=== PATIENT | male | born 1985 | race Caucasian/White ===

== ENCOUNTER 2025-03-24 02:39 | Observation (INO) | payer OTHER, SELFPAY ==
[2025-03-24] VITALS (14 sets, daily range): BP systolic 118–143; BP diastolic 83–99; PULSE 80–99; RESP 12–20; TEMP 36.1–37.6; O2SAT 97–100; BMI 28.2
--- NOTE | ~2025-03-24 | CT_ITS ---
EXAMINATION: CT abdomen pelvis w con DATE: 03/24/2025 05:36 INDICATION: Abdominal pain. TECHNIQUE: Computed tomography (CT) of the abdomen and pelvis was performed with 100 mL Omnipaque 350 intravenous contrast. Automated exposure control and iterative reconstruction technique were employed. The dose-length product was 802.64 mGy-cm. COMPARISON: None. FINDINGS: The visualized portions of the lung bases demonstrate mild atelectasis. No pleural effusion. The heart size is normal. No pericardial effusion. The liver demonstrates focal steatosis adjacent to the falciform ligament. The gallbladder, spleen, pancreas, adrenal glands, and left kidney are normal. There is a 14 mm cyst in right kidney. There is prominent fat in left inguinal canal that may be a hernia. The appendix is fluid-filled and dilated to 15 mm with surrounding fat stranding, consistent with appendicitis. There are no pathologically enlarged lymph nodes. There is no free intraperitoneal fluid. There is mild lumbar spondylosis. IMPRESSION: 1. Acute appendicitis. Reviewed, dictated and finalized at location E. SALES REPRESENTATIVE IMPRESSION: 1. Acute appendicitis.
--- OUTSIDE RECORDS SUMMARY | 2025-03-24 02:41 | XMS_ITS | Clinical Summary ---
Author Organization [facility] Address [address] [place] [address] Care Team Providers Care Subassemblies Wirer Name Role Phone Mary Jo Blanc MD Primary Care Provider [phone] Source Comments [facility],non-owned Affiliates and Associated Physician Practices is amultiple site organization consisting of ambulatory clinics and hospital sitesin [place], [place] and [place]. This disclosure is being madepursuant to the Care Everywhere program and may not contain all information available regarding this patient. Last updated 18.[facility] Red Stamp Allergies No known active allergies Medications * Be aware that medications may not be up to date on this document. Alwaysverify current medications with the patient. ALPRAZolam (XANAX PO) Active amphetamine-dex troamphetamine XR 24hr (ADDERALL XR) 20 MG capsule Take 20 mg by mouth every morning Active Active Problems No known active problems Social History Tobacco Use Types Packs/Day Years Used Date Smoking Tobacco: Never Smokeless Tobacco: Never Sex and Gender Information Value Date Recorded Sex Assigned at Not on file Legal Sex Male 1:28 PM CDT Gender Identity Not on file Sexual Orientation Not on file Last Filed Vital Signs Vital Sign Reading Time Taken Comments Blood Pressure 120/78 11/27/2020 12:54 PM CDT Pulse 83 11/27/2020 12:54 PM CDT Temperature 36.7 C (98.1 F) 11/27/2020 12:54 PM CDT Respiratory Rate 18 11/27/2020 12:54 PM CDT Oxygen Saturation 98% 11/27/2020 12:54 PM CDT Inhaled Oxygen Concentration - - Weight 86.2 kg (190 lb) 11/27/2020 12:54 PM CDT Height 177.8 cm (5' 10) 11/27/2020 12:54 PM CDT Body Mass Index 27.26 11/27/2020 12:54 PM CDT Plan of Treatment Health Maintenance Due Date Last Done Comments HIV SCREENING 08/03/2002 HEPATITIS C SCREENING 07/30/2005 DTAP/TDAP/TD VACCINES (1 - Tdap) 08/03/2006 HEPATITIS B VACCINE (1 of 3 - 19+ 3-dose series) 08/03/2006 HPV VACCINE (1 - 3-dose SCDM series) 08/03/2014 DEPRESSION SCREENING 04/24/2024 COVID-19 VACCINE ( - season) 2024 INFLUENZA VACCINE (#1) 2024 9, 02/07/2018, 02/06/2018, Additional history exists ZOSTER VACCINE (1 of 2) 08/03/2037 HIB VACCINE Aged Out No longer eligi ble based on patient's age to complete this topic MENINGOCOCCAL (Group B) VACCINE SHARED DECISION-MAKING Aged Out No longer eligible based on patient's age to complete this topic MENINGOCOCCAL GROUPS A/C/Y/W VACCINE Aged Out No longer eligible based on patient's age to complete this topic PNEUMOCOCCAL VACCINE Aged Out No long er eligible based on patient's age to complete this topic Insurance [facility] Care Teams Subassemblies Wirer Relationship Specialty Start Date End Date Mary Jo Blanc MD PCP - General Family Medicine 01/01/18
[2025-03-24 04:03] LABS: Add Urine Microscopic? NO; Appearance Urine Clear (Clear); Glucose Urine UA Negative (Negative); Leukocyte Esterase Ur Negative LEU/UL (Negative); Nitrate Urine Negative (Negative); Specific Grav Ur 1.025 (1.001-1.035)
[2025-03-24 04:06] LABS: Hematocrit 43.6 % (42.0-52.0); Hemoglobin 15.2 g/dL (14.0-18.0); Immature Granulocyte Percent A 0.3 % (0-0.5); Lymphocytes Absolute Auto 2.43 K/mm3 (0.9-3.2); Mean Corpuscular HGB Conc 34.9 g/dl (32-36); Mean Corpuscular Hemoglobin 28.8 pg (26-34); Mean Corpuscular Volume 82.7 fl (80-100); Nucleated Red Blood Cells Absolute Auto 0.000 K/mm3 (0.0-0.012); Nucleated Red Blood Cells Perc 0.0 % (0.0-0.2); Platelet Count Result 222 k/mm3 (150-375); Red Blood Count 5.27 M/mm3 (4.6-6.20); White Blood Count 11.0 K/mm3 (4.5-10.0)
[2025-03-24 04:26] LABS: Alanine Aminotransferase 31 U/L (6-50); Albumin Level 4.3 g/dL (3.5-5.1); Alkaline Phosphatase 58 U/L (38-126); Anion Gap 4 mmol/L (4-12); Aspartate Amino Transferase 24 U/L (17-59); Bilirubin,Total 1.0 mg/dL (0.2-1.3); Blood Urea Nitrogen 15 mg/dL (9-20); Calcium 9.0 mg/dL (8.4-10.2); Carbon Dioxide 29 mmol/L (22-30); Chloride 105 mmol/L (98-107); Estimated CRCL calculation 94 ml/min; Estimated Glomerular Filt Rate > 60; Glucose 109 mg/dL (65-110); Lipase 66 U/L (23-300); Potassium 4.4 mmol/L (3.4-5.0); Sodium 138 mmol/L (137-145); Total Protein 7.2 g/dL (6.3-8.2)
--- NOTE | 2025-03-24 05:27 | ED_ITS ---
HPI - General Adult General Chief complaint: Abdominal Pain Stated complaint: lower abd pain x 14hrs Time Seen by Provider: 03/24/25 05:12 History of Present Illness HPI narrative: Patient 39-year-old gentleman presents emergency department with chief complaint of abdominal pain patient reports the pain started approximately 14 hours ago reports that it is periumbilical reports he has had change in his appetite reports that the pain is worse with movement. Patient reports no vomiting no diarrhea patient reports no prior surgical history Related Data Allergies Allergy/AdvReac Type Severity Reaction Status Date / Time No Known Allergies Allergy Unverified 08/29/16 21:21 Review of Systems 2 Review of Systems: A 10 system review of systems was completed on the patient and is negative except for what is stated in the HPI. Nursing and ancillary documentation was reviewed. Exam 2 Narrative: GENERAL: Well-appearing, well-nourished, and in no acute distress. HEAD: Normocephalic, atraumatic. EYES: PERRLA and EOMI. ENT: Nares clear, no rhinorrhea or epistaxis. Mucous membranes moist. NECK: Supple. CHEST: Clear to auscultation. No respiratory distress. HEART: Regular rate and rhythm. No murmur heard. Normal peripheral pulses. ABDOMEN: Soft, nontender, nondistended, normal active bowel sounds. EXTREMITIES: Normal range of motion. No edema. SKIN: Warm, dry, no rash. NEURO: No focal deficits. Alert and oriented x3. PSYCH: Normal mood and affect. Course Vital Signs Vital signs: Vital Signs Temperature 36.6 C 03/24/25 02:44 Pulse Rate 99 03/24/25 02:44 Respiratory Rate 18 03/24/25 02:44 Blood Pressure 143/99 H 03/24/25 02:44 Pulse Oximetry 100 03/24/25 02:44 Oxygen Delivery Room Air 03/24/25 02:44 Temperature 36.6 C 03/24/25 02:44 Pulse Rate 99 03/24/25 02:44 Respiratory Rate 18 03/24/25 02:44 Blood Pressure 143/99 H 03/24/25 02:44 Pulse Oximetry 100 03/24/25 02:44 Oxygen Delivery Room Air 03/24/25 02:44 Medical Decision Making [facility] Narrative Medical decision making narrative: Differential diagnosis includes intra-abdominal infection, diverticulitis, colitis, Laboratory studies were obtained on the patient white count 11.0 electrolytes are within normal limits urinalysis showed no evidence UTI CT scan of the abdomen pelvis was ordered and is currently pending CT scan showed evidence of acute uncomplicated appendicitis patient started on Zosyn case was discussed with surgery and will be admitted to the surgical service Vital Signs Vital Signs: Vital Signs Temperature 36.6 C 03/24/25 02:44 Pulse Rate 99 03/24/25 02:44 Respiratory Rate 18 03/24/25 02:44 Blood Pressure 143/99 H 03/24/25 02:44 Pulse Oximetry 100 03/24/25 02:44 Oxygen Delivery Room Air 03/24/25 02:44 Temperature 36.6 C 03/24/25 02:44 Pulse Rate 99 03/24/25 02:44 Respiratory Rate 18 03/24/25 02:44 Blood Pressure 143/99 H 03/24/25 02:44 Pulse Oximetry 100 03/24/25 02:44 Oxygen Delivery Room Air 03/24/25 02:44 Lab Data 03/24/25 03:47 03/24/25 03:47 Labs: Lab Results 03/24/25 Range/Units 03:47 WBC 11.0 H (4.5-10.0) K/mm3 RBC 5.27 (4.6-6.20) M/mm3 Hgb 15.2 (14.0-18.0) g/dL Hct 43.6 (42.0-52.0) % MCV 82.7 (80-100) fl MCH 28.8 (26-34) pg MCHC 34.9 (32-36) g/dl RDW 12.2 (11.5-14.5) % Plt Count 222 (150-375) k/mm3 MPV 9.1 (7.4-10.4) fl Immature Gran % (Auto) 0.3 (0-0.5) % Neut % (Auto) 65.1 (45.5-73.1) % Lymph % (Auto) 22.0 (18.3-44.2) % [place] % (Auto) 10.0 H (2.6-8.5) % Eos % (Auto) 2.1 (0-4.4) % Baso % (Auto) 0.5 (0.2-1.2) % Lymph # (Auto) 2.43 (0.9-3.2) K/mm3 [place] # (Auto) 1.1 H (0.1-0.6) K/mm3 Eos # (Auto) 0.2 (0-0.3) K/mm3 Baso # (Auto) 0.1 (0.0-0.1) K/mm3 Abs Immat Gran (auto) 0.03 (0.00-0.031) K/mm3 Absolute Neuts (auto) 7.2 H (1.3-6.7) K/mm3 Absolute Nucleated RBC 0.000 (0.0-0.012) K/mm3 Nucleated RBC % 0.0 (0.0-0.2) % Sodium 138 (137-145) mmol/L Potassium 4.4 (3.4-5.0) mmol/L Chloride 105 (98-107) mmol/L Carbon Dioxide 29 (22-30) mmol/L Anion Gap 4 (4-12) mmol/L BUN 15 (9-20) mg/dL Creatinine 0.98 (0.7-1.3) mg/dL Estim Creat Clear Calc 94 ml/min Estimated GFR > 60 (59 - ) Glucose 109 (65-110) mg/dL Calcium 9.0 (8.4-10.2) mg/dL Total Bilirubin 1.0 (0.2-1.3) mg/dL AST 24 (17-59) U/L ALT 31 (6-50) U/L Alkaline Phosphatase 58 (38-126) U/L Total Protein 7.2 (6.3-8.2) g/dL Albumin 4.3 (3.5-5.1) g/dL Lipase 66 (23-300) U/L Urine Color Yellow (Yellow) Urine Appearance Clear (Clear) Urine pH 6.5 (5.0-9.0) Ur Specific [place] 1.025 (1.001-1.035) Urine Protein Negative (Negative) mg/dL Urine Glucose (UA) Negative (Negative) mg/dL Urine Ketones Negative (Negative) mg/dL Ur Blood (Man) Negative (Negative) Urine Nitrate Negative (Negative) Urine Bilirubin Negative (Negative) Urine Urobilinogen 1.0 (<2.0) mg/dL Leukocyte Esterase Rfl Negative (Negative) TANMAY/UL Discharge Plan Discharge Clinical Impression: Acute appendicitis Patient Disposition: Still a Patient Condition: Stable Instructions: Antibiotic Form Patient Language: [place] Island[place] Follow-up/Referrals: UNKNOWN,DOCTOR [Primary Care Provider] Time of Disposition: 06:53
[2025-03-24] MEDS: SODIUM CHLORIDE 0.9% IV 1,000 ML 999 ML IV CONT (05:40)
[2025-03-24] MEDS: MORPHINE SULFATE (*CRX) 4 MG/ML INJ IV PUSH (05:43)
[2025-03-24] MEDS: ONDANSETRON INJ 4 MG/2 ML VIAL IV PUSH ×2 (05:43→11:13)
[2025-03-24] MEDS: PIPERACILLIN/TAZOBACTAM SOD 3.375 GM in SODIUM CHLORIDE 0.9% IV 50 ML 100 ML IVPB (07:10)
[2025-03-24] MEDS: SODIUM CHLORIDE 0.9% IV 1,000 ML 125 ML IV CONT (07:42)
--- NOTE | 2025-03-24 07:44 | WPCEDHO ---
ED Hand Off Checklist All vitals saved:yes IV Site documented:yes All med administrations documented:yes Triage Note Triage Note pt presents to ED c/o 03/24/25 02:44 10abdominal pain non radiating, no rebound tenderness, denies n/v . Allergies No Known Allergies Allergy (Unverified 08/29/16 21:21) Active Medications including assessments/comments Sodium Chloride (Normal Saline Iv) 1,000 mls @ 125 mls/hr IV CONT .Q8H FARSHAD Last Admin: 03/24/25 07:42 Dose: 125 mls/hr Documented By: MLI Infusion/Titration Document 03/24/25 07:42 MLI (Rec: 03/24/25 07:42 MLI [id number]) Intake IV Site Peripheral Access Right Antecubital Container Volume 1,000 Waste Amount 0 Dosing Infusion Rate 125 Cumulative Dose Not Applicable Increase/Decrease Started Elapsed Time Elapsed Time ( 0m minutes) Administered/Completed Medications Discontinued Medications Sodium Chloride (Normal Saline Iv) 1,000 mls @ 999 mls/hr IV CONT .Q1H1M STA Stop: 03/24/25 06:16 Last Infusion: 03/24/25 06:58 Dose: Infused Documented By: Admin: 03/24/25 05:40 Dose: 999 mls/hr Documented By: INDIO Piperacillin Sod/Tazobactam (Sod 3.375 gm/ Sodium Chloride) 50 mls @ 100 mls/hr IVPB ONCE STA Stop: 03/24/25 07:19 Last Admin: 03/24/25 07:10 Dose: 100 mls/hr Documented By: INDIO Morphine Sulfate (Morphine Sulfate (*Crx) 4 Mg/Ml Inj) 4 mg IV PUSH ONCE STA Stop: 03/24/25 05:17 Last Admin: 03/24/25 05:43 Dose: 4 mg Documented By: W Ondansetron HCl (Ondansetron Inj 4 Mg/2 Ml Vial) 4 mg IV PUSH ONCE STA Stop: 03/24/25 05:17 Last Admin: 03/24/25 05:43 Dose: 4 mg Documented By: INDIO Interventions/Assessments IV / Saline Lock, Insert Start: 03/24/25 02:49 Freq: STAT Status: Active Protocol: Document 03/24/25 03:56 INDIO (Rec: 03/24/25 03:56 SRW [id number]) IV Assessment Peripheral Access Right Antecubital IV Catheter Access Initiated IV Insertion Date 03/24/25 IV Insertion Time 03:56 Catheter Gauge 20 IV Insertion 1 Attempts Ultrasound Used for Yes Placement IV Site Assessment WNL IV Care and WNL Maintenance PA: Gastrointestinal Assessment Start: 03/24/25 02:40 Freq: Status: Active Protocol: Document 03/24/25 04:30 SRW (Rec: 03/24/25 04:30 SRW [id number]) GI Assessment Gastrointestinal Nausea Symptoms Description Soft Last Vital Signs Temperature 98.1 F 03/24/25 07:10 Pulse Rate 81 03/24/25 07:10 Respiratory Rate 20 03/24/25 07:10 Pulse Oximetry 98 03/24/25 07:10 Blood Pressure 130/89 03/24/25 07:10 Blood Pressure Mean 102 03/24/25 07:10 Blood Pressure Position Sitting 03/24/25 02:44 Oxygen Delivery Room Air 03/24/25 02:44 Weight 89.2 kg 03/24/25 02:44 Last Result - Abnormals Only WBC 11.0 K/mm3 (4.5-10.0) H 03/24/25 03:47 [place] % (Auto) 10.0 % (2.6-8.5) H 03/24/25 03:47 [place] # (Auto) 1.1 K/mm3 (0.1-0.6) H 03/24/25 03:47 Absolute Neuts (auto) 7.2 K/mm3 (1.3-6.7) H 03/24/25 03:47 Most Recent Suicide Severity Rating Suicide Severity Rating NO RISK INDICATED 03/24/25 02:44
[2025-03-24] MEDS: LACTATED RINGERS 1,000 ML 30 ML IV CONT ×2 (09:05→11:42)
--- NOTE | 2025-03-24 09:14 | WPDANESEPPF ---
Anes - Initial Pre Proc Eval Procedure: Operation Date: 03/24/25 09:45 Proposed Procedures p Laparoscopic Appendectomy - Sarah Jack MD Date/Time: 03/24/25 09:14 Surgeon: Sarah Jack MD Pre Op Diagnosis: Acute Appendicitis Patient Data Age: 39 Gender: M Height: 1.78 m Weight: 89.2 kg Last Vital Signs Temp 36.6 C 03/24/25 08:45 Pulse 83 03/24/25 08:45 Resp 16 03/24/25 08:45 BP 118/83 03/24/25 08:45 Pulse Ox 97 03/24/25 08:45 O2 Del Method Room Air 03/24/25 02:44 Allergies Allergy/AdvReac Type Severity Reaction Status Date / Time No Known Allergies Allergy Unverified 08/29/16 21:21 Laboratory Tests 03/24/25 03:47 WBC 11.0 H K/mm3 (4.5-10.0) RBC 5.27 M/mm3 (4.6-6.20) Hgb 15.2 g/dL (14.0-18.0) Hct 43.6 % (42.0-52.0) MCV 82.7 fl (80-100) MCH 28.8 pg (26-34) MCHC 34.9 g/dl (32-36) RDW 12.2 % (11.5-14.5) Plt Count 222 k/mm3 (150-375) MPV 9.1 fl (7.4-10.4) Immature Gran % (Auto) 0.3 % (0-0.5) Neut % (Auto) 65.1 % (45.5-73.1) Lymph % (Auto) 22.0 % (18.3-44.2) [place] % (Auto) 10.0 H % (2.6-8.5) Eos % (Auto) 2.1 % (0-4.4) Baso % (Auto) 0.5 % (0.2-1.2) Lymph # (Auto) 2.43 K/mm3 (0.9-3.2) [place] # (Auto) 1.1 H K/mm3 (0.1-0.6) Eos # (Auto) 0.2 K/mm3 (0-0.3) Baso # (Auto) 0.1 K/mm3 (0.0-0.1) Abs Immat Gran (auto) 0.03 K/mm3 (0.00-0.031) Absolute Neuts (auto) 7.2 H K/mm3 (1.3-6.7) Absolute Nucleated RBC 0.000 K/mm3 (0.0-0.012) Nucleated RBC % 0.0 % (0.0-0.2) Sodium 138 mmol/L (137-145) Potassium 4.4 mmol/L (3.4-5.0) Chloride 105 mmol/L (98-107) Carbon Dioxide 29 mmol/L (22-30) Anion Gap 4 mmol/L (4-12) BUN 15 mg/dL (9-20) Creatinine 0.98 mg/dL (0.7-1.3) Estim Creat Clear Calc 94 ml/min Estimated GFR > 60 (59 - ) Glucose 109 mg/dL (65-110) Calcium 9.0 mg/dL (8.4-10.2) Total Bilirubin 1.0 mg/dL (0.2-1.3) AST 24 U/L (17-59) ALT 31 U/L (6-50) Alkaline Phosphatase 58 U/L (38-126) Total Protein 7.2 g/dL (6.3-8.2) Albumin 4.3 g/dL (3.5-5.1) Lipase 66 U/L (23-300) Urine Color Yellow (Yellow) Urine Appearance Clear (Clear) Urine pH 6.5 (5.0-9.0) Ur Specific [place] 1.025 (1.001-1.035) Urine Protein Negative mg/dL (Negative) Urine Glucose (UA) Negative mg/dL (Negative) Urine Ketones Negative mg/dL (Negative) Ur Blood (Man) Negative (Negative) Urine Nitrate Negative (Negative) Urine Bilirubin Negative (Negative) Urine Urobilinogen 1.0 mg/dL (<2.0) Leukocyte Esterase Rfl Negative TANMAY/UL (Negative) Patient hx anesthesia problems: none Family hx anesthesia problems: none Results Review: All pre-operative results and documents have been reviewed as part of the pre-operative evaluation. Anes - Eval Final PreProcedure Day of Procedure 03/24/25 09:14 Patient weight: overweight Heart: regular rate and rhythm Lungs: clear to auscultation Airway: Mallampati scale class II Neurological: alert and oriented Last oral intake: >/= 8 hours ASA classification: II Emergent: yes Anesthetic plan: proceed Anesthesia type and monitoring: general ETT and standard monitoring Results Review: All pre-operative results and documents have been reviewed as part of the pre-operative evaluation. Informed Consent: The patient's anesthetic plan and its attendant risks and benefits were discussed with the patient/family/POA. Questions were solicited and answers provided to the satisfaction of the patient/family/POA.
--- NOTE | 2025-03-24 09:38 | P.HP_ITS ---
H&P: HPI History of Present Illness Date/Time: 03/24/25 09:38 Chief Complaint: RLQ abdominal pain Narrative: This is a 39-year-old man who is otherwise healthy, who presented to the ER with RLQ abdominal pain x 1 day. He reports an onset of periumbilical pain around 10 am yesterday. His pain localized to the RLQ after a few hours and has remained in that area since. He denies nausea, vomiting, diarrhea, fevers, or any other associated symptoms. His pain was aggravated by bending and palpation. No alleviating factors, therefore he came in for evaluation. Workup showed CT evidence of acute appendicitis, no abscess or findings of perforation. He was admitted and started on IV antibiotics. Review of Systems Review of Systems: All systems reviewed & are unremarkable except as noted in HPI and below PMFSH Past Medical History Medical History No significant past medical history Surgical History Surgical History History of vasectomy History of surgery on arm Social History Social History Smoking status: Never smoker Alcohol intake: never Substance use: never Meds Home Medications and Allergies Allergies Allergy/AdvReac Type Severity Reaction Status Date / Time No Known Allergies Allergy Unverified 08/29/16 21:21 Vital Signs Vital Signs - 24 hr 03/24/25 02:44 03/24/25 07:10 03/24/25 08:45 Temperature 98 F 98.1 F 97.8 F Pulse Rate 99 81 83 Respiratory Rate 18 20 16 Blood Pressure 143/99 H 130/89 118/83 Pulse Oximetry 100 98 97 Oxygen Delivery Room Air 03/24/25 09:05 Temperature 97.8 F Pulse Rate 83 Respiratory Rate 16 Blood Pressure 124/88 Pulse Oximetry 100 Oxygen Delivery Room Air Exam Const: General: comfortable and no acute distress Nutritional Appearance: average body habitus Orientation/consciousness: patient oriented x3 HENMT: Head: normocephalic and atraumatic Ears: hearing grossly normal bilaterally Eyes: General: appearance normal, both eyes and all related structures Pupils: Equal, round and reactive pupils present Neck: Neck: normal visual inspection and full ROM Resp: Effort & Inspection: no respiratory distress Auscultation: clear to auscultation bilaterally Cardio: Rate: regular rate Rhythm: regular rhythm Peripheral pulses: Peripheral pulses 2+ throughout GI: Inspection: non-distended and no scars GI Palp: Yes Soft to palpation, Yes Tenderness to palpation present (GI) (RLQ), Yes Guarding due to palpation present (GI) (RLQ), Yes No hepatosplenomegaly present, No Hernia present, No Palpable mass present and No Rebound tenderness present Auscultation: normal bowel sounds Rectal Exam: deferred Skin: General skin exam: normal color Neuro: General: moves all extremities and no focal motor deficits Speech: normal speech Motor exam (neuro): 5/5 motor strength present throughout Extrem: General: normal to inspection and no edema Psych: Mental Status: mental status grossly normal Attitude: cooperative Insight: Good insight present (Psych) Judgement: Good judgement present (Psych) Results Labs Labs: Short CBC 03/24/25 Range/Units 03:47 WBC 11.0 H (4.5-10.0) K/mm3 Hgb 15.2 (14.0-18.0) g/dL Hct 43.6 (42.0-52.0) % Plt Count 222 (150-375) k/mm3 BMP 03/24/25 03:47 Sodium 138 Potassium 4.4 Chloride 105 Carbon Dioxide 29 BUN 15 Creatinine 0.98 Glucose 109 Calcium 9.0 Liver Function 03/24/25 Range/Units 03:47 Total Bilirubin 1.0 (0.2-1.3) mg/dL AST 24 (17-59) U/L ALT 31 (6-50) U/L Alkaline Phosphatase 58 (38-126) U/L Albumin 4.3 (3.5-5.1) g/dL Urine 03/24/25 Range/Units 03:47 Urine Color Yellow (Yellow) Urine Appearance Clear (Clear) Urine pH 6.5 (5.0-9.0) Ur Specific [place] 1.025 (1.001-1.035) Urine Protein Negative (Negative) mg/dL Urine Glucose (UA) Negative (Negative) mg/dL Imaging CT scan - abdomen: Radiologist's impression: ITS Impressions Abdomen/Pelvis CT 03/24/25 06:41 IMPRESSION: 1. Acute appendicitis. Assessment and Plan Assessment and plan (1) Acute appendicitis: Qualifiers: Acute appendicitis type: with localized peritonitis Appendicitis gangrene presence: unspecified whether gangrene present Appendicitis perforation presence: unspecified whether perforation present Appendicitis abscess presence: without abscess Qualified Code(s): K35.30 - Acute appendicitis with localized peritonitis, without perforation or gangrene Code(s): K35.80 - Unspecified acute appendicitis Status: Acute Assessment and Plan: * CT scan reviewed and discussed with the patient. There is evidence of acute appendicitis. No perforation or abscess evident on CT. We discussed both nonoperative treatment with IV antibiotics/monitoring versus proceeding with surgery. We discussed the risks of recurrence or treatment failure with the option of antibiotic therapy. I also discussed the details of a laparoscopic appendectomy, possible open, under general anesthesia that would be done by Bettina Jack. Description of the procedure, risks, benefits, alternatives, and expected recovery were discussed. He agrees to proceed with surgery. Keep NPO and continue IV antibiotics, IV fluids, and analgesics as needed pre- operatively. Proceed with urgent appendectomy today. Plan I have discussed the patient's case, recommendations, and treatment plan with Dr. Jack.
--- NOTE | 2025-03-24 09:49 | PC.NURSE ---
Admission could not be completed when patient arrived. He was transported to surgery.
--- NOTE | 2025-03-24 09:54 | WPDHPUPDATE1 ---
History and Physical Update Update Date/Time: 03/24/25 09:54 History and Physical has been reviewed, including an updated exam of the patient. There are NO changes in the patient's condition. Risks, benefits, and alternatives have been discussed and questions answered. Patient agrees to proceed with procedure.
--- NOTE | 2025-03-24 10:29 | S_PTH ---
PATIENT: Alexei Metcalf LOC: [id number] #:[id number] AGE/SX: 39/M ROOM: 250 RE03/24/[address]: Sarah Jack MD : 1985 BED: 01 DIS: 03/24/2025 SPEC #: [id number] RECD: 03/24/25 11:47 STATUS: REESE REQ #: [id number] ZAFAR: 03/24/25 10:[address]: Sarah Jack DEPT: [facility] Surgical RECD BY: Deja Castrejon ENTERED: 03/24/25 11:48 SP TYPE: Surgical OTHR DR: UNKNOWN,DOCTOR Tissues: A - Appendix Procedures: Hematoxylin and Eosin Stain Gross and Microscopic Level 3
[2025-03-24] MEDS: fentaNYL CITRATE INJ (*CRX) 100 MCG/2 ML VIAL 25 MCG IV PUSH ×8 (11:17→11:52)
[2025-03-24] MEDS: HYDROcodone/acetaminophen (*CRX) 5-325 MG TABLET 1 TAB PO (12:30)
--- NOTE | 2025-03-25 12:51 | P.OP_ITS ---
Procedure Note - Detailed Date of Procedure 03/24/25 Pre-op Diagnosis Acute Appendicitis Post-op Diagnosis Same Procedure Performed laparoscopic appendectomy Surgeon Sarah Jack MD Anesthesia General Indications 39-year-old male presenting to the emergency department with acute appendicitis Findings acute appendicitis no evidence of perforation Description of Procedure The patient was taken to the operating room and placed in the supine position. After adequate induction of general anesthesia, the patient was prepped and draped in the normal sterile fashion. A time-out was then done to verify the patient's identity, as well as the procedure being performed. I began by making a 5 mm incision in the infraumbilical region, through this a Veress needle was placed in the peritoneal cavity. CO2 gas was then insufflated and after adequate pneumoperitoneum was achieved the Veress needle was removed. Then placed a 5 mm Optiview trocar under direct visualization into the peritoneal cavity. I then insufflated through this trocar site and the endoscope was placed into the trocar. Under direct visualization, placed 2 further 5 mm suprapubic port as well as an additional 12 mm port in the left lower abdomen. At this point identified the cecum, I retracted the cecum both medially and superiorly allowing me to expose the appendix. The appendix was noted to be very dilated and inflamed. The appendix was noted to be very adherent to the right lateral sidewall as well as the ileum. I was able to bluntly dissect the appendix from these adhesions. I then was able to locate the base of the appe ndix with the cecum. I created a window with the [place] dissector between the appendix itself and the mesoappendix. I then transected the mesoappendix with a white vascular staple load. The Endo-JOSH was then reloaded with a blue staple load and I transected the base of the appendix. Once the specimen was completely detached, an endo-pouch was placed into the 12 mm port site and the specimen was removed through the endo-pouch. The appendiceal specimen will be sent to pathology for further review. I then copiously irrigated the right lower quadrant. Hemostasis was noted at both staple lines no other pathology was seen in this area. I then moved the camera to the suprapubic port to check our its port of entry. No iatrogenic injury or other pathology was noted in the upper abdomen. I then closed the 12 mm port site with a Tino code and 0 Vicryl suture under direct visualization. At this point, the abdomen was desufflated and all ports were removed. All port sites were closed with 4 Monocryl subcuticular suture. Dermabond was placed on all wounds. The patient tolerated the procedure well and was extubated in the operating room postop. He will be sent to the recovery room in stable condition. Estimated Blood Loss 10 Drains No Packing No Pathology Yes Complications No immediate complications Condition Stable Disposition PACU [facility] Billing Surgery - Charge Forward: Surgery Billing
--- NOTE | 2025-03-25 12:52 | P.DS_ITS ---
DS: Admitting Diagnosis Discharge Date 03/24/25 Admitting Diagnosis acute appendicitis DS: Discharge Diagnosis Discharge Diagnosis (1) Acute appendicitis: Qualifiers: Acute appendicitis type: with localized peritonitis Appendicitis abscess presence: without abscess Appendicitis gangrene presence: unspecified whether gangrene present Appendicitis perforation presence: unspecified whether perforation present Qualified Code(s): K35.30 - Acute appendicitis with localized peritonitis, without perforation or gangrene Code(s): K35.80 - Unspecified acute appendicitis Status: Acute Assessment and Plan: status post laparoscopic appendectomy, continue routine postoperative care, home with p.o. analgesia, await path, follow-up 2 weeks DS: Summary Hospital Course Reason for hospitalization: acute appendicitis Hospital Course: The patient is a 39-year-old male presenting to the emergency department complaining of severe right lower quadrant abdominal pain. Workup, including imaging, was significant for acute appendicitis. Given these findings, the patient was admitted to the surgical service and started on IV antibiotics. He was also made NPO. Upon evaluation, the decision was made for urgent appendectomy. Patient was taken to the operating and laparoscopic appendectomy was performed, please see full operative report for details of that procedure. Postop, the patient did well and was transferred back to the surgical floor. He was able to tolerate a bland diet and was up and around without difficulty. His pain was well controlled with p.o. analgesia. At this time he will be discharged with instructions for routine postoperative care. He will be sent home with a prescription for [place]. He will follow-up with me in 2 weeks. Status at Discharge Functional status at discharge: independent ambulation Overall status at discharge: patient is progressing back to baseline Time Spent with Patient Time attestation: Total time spent providing and/or coordinating discharge services: Time spent: Less than 30 minutes Exam Const: General: cooperative, comfortable and no acute distress Resp: Auscultation: clear to auscultation bilaterally Cardio: Rate: regular rate Rhythm: regular rhythm GI: Inspection: normal to inspection, non-distended and incision GI Palp: Yes abdominal tenderness and Yes Soft to palpation DS: Data Data Completed and Pending Completed studies during hospitalization: Pending at discharge 03/24/25 10:29 Surgical [PTH] Routine Discharge Plan Discharge Attending physician on discharge: Sarah Jack Consulting providers: Melania Siddiqi; Teofilo Rehman; Hakeem Seals V. Discharging Clinician: Sarah Jack Anticipated Discharge Date/Time: 03/24/25 14:00 Patient Disposition: Home Activity: may shower and as tolerated Diet: as tolerated Wound Care Instructions: incision open to air Discharge Instructions: DISCHARGE INSTRUCTION SHEET FOR HERNIA, GALLBLADDER AND APPENDIX SURGERIES DR. JACK 1. May shower in 24 hours, no soaking in bath x 2weeks. 2. Call office for: * Wound increasingly painful or bleeding * Vomiting * Fever of greater than 101 degrees 3. If no bowel movement for three days, take 1 oz. (30 ml) Milk of Magnesia or MiraLax 17g 1 to 2 times daily. 4. No heavy lifting > 10-15 pounds x 6 weeks for hernia repairs and 2 weeks for laparoscopic cholecystectomy or appendectomy. 5. No driving for 3 days or while taking narcotic pain medications. 6. Ice to surgical site for 48 hours (30 min on, then 30 min off). 7. Up walking 10-30 minutes three times per day. 8. Resume previous home medications. 9. Follow-up 10-14 days in office for wound check or as previously scheduled. ([phone]) 10. Oral pain medications prescription to be sent to pharmacy. Take Tylenol 500mg every 6 hours and Ibuprofen 600mg every 6 hours for the first 2 days, then as needed. 11. NUTRITION: Start out by drinking fluids and increase your diet as tolerated. If you experience nausea, try dry toast, crackers, and 7-UP. If nausea or vomiting persists, contact your surgeon?s office. Patient Instructions: Antibiotic Form Patient Language: Luxembourgish Stand Alone Forms: General Discharge Information Follow-up/Referrals: Sarah Jack MD [Physician, General Surgery] - 2 Weeks Discharge Medications: New hydrocodone-acetaminophen 5-325 mg tablet 1 tablet PO Q6H PRN (Reason: pain) Qty: 20 0RF docusate sodium [Colace] 100 mg capsule 100 mg PO BID Qty: 20 0RF Continued alprazolam 1 mg tablet dextroamphetamine-amphetamine 30 mg tablet dextroamphetamine-amphetamine 20 mg capsule,extended release 24hr PO Date of admission: 03/24/25 06:51 Primary Care Provider: UNKNOWN,DOCTOR Admitting Provider: Sarah Jack Attending physician on admission: Sarah Jack Condition: Stable
== END 2025-03-24 16:35 | disposition home or self-care (01) ==
LOC: ANHED 07:04 → ANH2MED 07:50
PROVIDERS: Admitting Provider Surgery; Emergency Provider Emergency Medicine; Visit Provider Surgery
PROC: 0DTJ4ZZ Resection of Appendix, Percutaneous Endoscopic Approach (ICD-10-PCS; CPT 44970; principal; 2025-03-24 09:45)
DX: K35.30 Acute appendicitis with localized peritonitis, without perforation or gangrene (principal); Z98.52 Vasectomy status
CPT/HCPCS: 44970; 36415; 74177; 80053; 81003; 83690; 85025; 88304; 96361; 96365; 96375; 99285; A9270; G0378; J2250; J2270; J2405; J2543; J3010; J7030; J7120; Q9967